=== PATIENT | female | born 1950 | race Native Hawaiian/Other Pacific Islander ===

== ENCOUNTER 2017-01-07 14:30 | Emergency (ER) | payer MEDICARE, MEDICAID ==
[~2017-01-07] VITALS: Ht 162.6 cm; Wt 67.5 kg
[~2017-01-07 14:30] MED LIST: ALPR0.5T3 PO; ASPI81TA82 PO; HYDR10FO PR; PERC5TAB12 PO; SIMV10TA PO; TRAM50TA PO
[2017-01-07 14:37] VITALS: BP 129/70; PULSE 77; RESP 16; TEMP 97.7; O2SAT 99
[2017-01-07] MEDS ORDERED: SIMV10TA PO (15:06)
--- NOTE | 2017-01-07 15:39 | PD ---
HPI Chief Complaint: Injury Time Seen by Provider: 14:58 Travel History International Travel<30 days: No Contact w/Intl Traveler<30days: No Traveled to known affect area: No History of Present Illness HPI 66-year-old female presents to the emergency room for evaluation of left medial knee pain that started last night. Patient states she twisted out of her car last night and heard a pop to her left knee. She denies any other injury or falling. States since then she has had pain with ambulation. Pain is localized to the medial aspect. She has associated, mild swelling. No pain at rest. She took diclofenac sodium and ibuprofen yesterday for pain. She applied ice and an [id number] knee wrap but states the rash seemed to make it feel worse. Patient denies paresthesias. She has prescription for tramadol but has not taken it because it makes her stomach hurt. PFSH Past Medical History Arthritis: Yes ( IN HAND AND KNEE) Cancer: No Cardiovascular Problems: Yes (HIGH CHOLESTEROL) High Cholesterol: Yes Cerebrovascular Accident: No Diminished Hearing: No Endocrine: No Gastrointestinal Disorders: Yes GERD: Yes Genitourinary: No Immune Disorder: No Musculoskeletal: Yes (CHRONIC NECK PAIN) Neurologic: Yes Psychiatric: No Reproductive: No Respiratory: No Immunizations Current: Yes Menopausal: Yes Past Surgical History Eye Surgery: Yes (CATARACT) Gynecologic Surgery: Yes (VARINDER BREAST BIOSPY) Other Surgery: Yes (BILAT BREAST BIOPSY) Social History Alcohol Use: No Tobacco Use: No Substance Use: No Allergies-Medications (Allergen,Severity, Reaction): Coded Allergies: cortisone (Unverified Allergy, Severe, COMA, 01/07/17) levofloxacin (Unverified Allergy, Severe, ITCHING & REDNESS AT IV SITE & TONGUE, 01/07/17) sulfamethoxazole (Unverified Allergy, Intermediate, RASH, 01/07/17) trimethoprim (Unverified Allergy, Intermediate, RASH, 01/07/17) Reported Meds & Prescriptions Reported Meds & Active Scripts Active Reported Simvastatin 10 Mg Tab 10 Mg PO DAILY Review of Systems Except as stated in HPI: all other systems reviewed are Neg Physical Exam Narrative GENERAL: Well-nourished, well-developed female in no acute distress. Afebrile. SKIN: Focused skin assessment warm/dry. No erythema or ecchymosis. HEAD: Normocephalic. EYES: No scleral icterus. No injection or drainage. NECK: Supple, trachea midline. No JVD or lymphadenopathy. CARDIOVASCULAR: Regular rate and rhythm without murmurs, gallops, or rubs. RESPIRATORY: Breath sounds equal bilaterally. No accessory muscle use. MUSCULOSKELETAL: No cyanosis. Mild edema of the medial aspect of the left knee. 2+ dorsalis pedis pulse. Full range of motion. No bony tenderness to palpation. Data Data Last Documented VS Vital Signs Date Time Temp Pulse Resp B/P (MAP) Pulse Ox O2 Delivery O2 Flow Rate FiO2 01/07/17 14:37 97.7 77 16 129/70 (89) 99 MDM Medical Decision Making Medical Screen Exam Complete: Yes Emergency Medical Condition: Yes Medical Record Reviewed: Yes Differential Diagnosis sprain, internal derangement, strain, fracture, effusion Narrative Course 66-year-old female presents to the emergency room for evaluation of left knee pain and swelling after injury last night. Patient had a twisting injury while getting out of her car and has had pain in her medial knee since then with ambulation. Denies pain at rest. No bony tenderness to palpation. Very mild edema of the medial aspect. No significant ecchymosis, erythema, or effusion. Full range of motion of the left knee. Left lower extremity is neurovascularly intact with 2+ dorsalis pedis pulse. This is likely internal derangement. Patient was informed that x-rays will not show internal derangement and that she 'll need MRI symptoms persist. She was told to take diclofenac or ibuprofen and tramadol as needed. Told to follow up with her PCP or return for worsening symptoms. She understands this plan. Diagnosis Primary Impression: Internal derangement of knee Qualified Codes: M23.92 - Unspecified internal derangement of left knee Referrals: Primary Care Physician Additional Instructions: Rest and drink plenty of fluids. Take tramadol as directed, as needed for pain. Do not drink alcohol or drive while taking this medication. Take ibuprofen with food as directed, as needed for pain. Do not take this medication with diclofenac. Use wrap as needed. Apply ice to the affected area for 20 minutes at a time, as needed for pain and swelling. Follow-up with a primary care physician if symptoms persist for possible outpatient MRI or referral to orthopedist. Return to the emergency room for worsening symptoms. Disposition: 01 DISCHARGE HOME Condition: Stable Edith Limon Jan 07, 2017 15:39
== END 2017-01-07 15:50 | disposition home or self-care (01) ==
LOC: PHEFT 14:30
DX: M23.92 Unspecified internal derangement of left knee (principal)
CPT/HCPCS: 99283